=== PATIENT | male | born 1955 | race Caucasian/White ===

== ENCOUNTER → 2020-01-08 14:28 | Outpatient (CLI) | payer BC, SELFPAY ==
[2020-01-08 15:48] LABS: Prostate Specific Ag Screen 1.3 ng/ml (0.0-4.0)
== END ==
PROVIDERS: Visit Provider Urology
DX: Z12.5 Encounter for screening for malignant neoplasm of prostate (principal)
CPT/HCPCS: 36415; G0103

== ENCOUNTER → 2021-01-16 14:46 | Outpatient (CLI) | payer MEDICARE, SELFPAY ==
[2021-01-16 16:59] LABS: Prostate Specific Ag Screen 1.2 ng/ml (0.0-4.0)
== END ==
PROVIDERS: Visit Provider Urology
DX: Z12.5 Encounter for screening for malignant neoplasm of prostate (principal)
CPT/HCPCS: 36415; G0103